=== PATIENT | male | born 1990 | race Caucasian/White ===

== ENCOUNTER → 2017-11-28 | Outpatient (CLI) | payer BC, MEDICAID ==
--- NOTE | 2017-11-29 08:45 | XR ---
EXAMINATION TYPE: XR ankle complete LT DATE OF EXAM: 11/28/2017 CLINICAL HISTORY: Left ankle pain for 2 to 3 years with no known injury TECHNIQUE: Frontal, lateral and oblique images of the left ankle are obtained. COMPARISON: None. FINDINGS: There is moderate soft tissue swelling of the left ankle joint and visualized hindfoot. Th ere is no acute fracture/dislocation evident in the left ankle. Small osteophyte/bony irregularity is seen at the talonavicular joint indicating minimal arthropathy. The ankle mortise appears within nor mal limits. The overlying soft tissue appears unremarkable. Incidental note is made of a large os tr igonum. IMPRESSION: 1. No acute fracture or dislocation in the left ankle. 2. Moderate soft tissue swelling of the left ankle and hindfoot. MR could be performed to evaluate fo r soft tissue/ligamentous/tendinous injury.
== END | disposition home or self-care (01) ==
LOC: RADXRMAIN 15:53
PROVIDERS: ATTEND Family Medicine
DX: M79.89 Other specified soft tissue disorders (principal)

== ENCOUNTER → 2019-05-17 | Outpatient (CLI) | payer MEDICAID ==
--- NOTE | 2019-05-17 14:34 | XR ---
EXAMINATION TYPE: XR foot complete LT DATE OF EXAM: 05/17/2019 COMPARISON: NONE HISTORY: Foot pain TECHNIQUE: 3 views FINDINGS: Metatarsals appear intact. There is soft tissue swelling of the forefoot. I see no fracture nor dislocation. IMPRESSION: Soft tissue swelling. No fracture.
== END | disposition home or self-care (01) ==
LOC: RADXRMAIN 13:52
PROVIDERS: ATTEND Physician Assistant
DX: M79.89 Other specified soft tissue disorders (principal)

== ENCOUNTER → 2020-10-04 | Outpatient (CLI) | payer MEDICAID ==
--- NOTE | 2020-10-04 09:15 | US ---
EXAMINATION TYPE: US abdomen complete DATE OF EXAM: 10/04/2020 COMPARISON: NONE CLINICAL HISTORY: E88.81 Metabolic syndrome. metabolic syndrome, hyperlipidemia EXAM MEASUREMENTS: Liver Length: 20.5 cm Gallbladder Wall: 0.2 cm CBD: 0.4 cm Spleen: 12.7 cm Right Kidney: 10.7 x 3.9 x 5.0 cm Left Kidney: 11.7 x 4.7 x 5.5 cm *Technical limitations due to patient's body habitus, morbidly obese, and large amount of overlying b owel content Pancreas: Obscured by bowel gas Liver: enlarged, attenuating, unable to penetrate Gallbladder: no evidence of stones Evidence for sonographic Thompson's sign: no CBD: appears wnl Spleen: wnl Right Kidney: no evidence of hydronephrosis Left Kidney: no evidence of hydronephrosis Upper IVC: Obscured by overlying bowel gas Abd Aorta: Obscured by overlying bowel gas The visualized liver is markedly heterogeneously hyperechoic. Evaluation for focal masses suboptimal due to the heterogeneity. No surrounding ascites noted. The intrahepatic portion of the IVC and abdo ga aorta are suboptimally evaluated due to overlying bowel gas and body habitus. There is no evid ence of shadowing mobile cholelithiasis. Common bile duct is not dilated. Pancreas suboptimally seen due to overlying bowel gas per technologist. The spleen is unremarkable. Kidneys are symmetric and free of hydronephrosis. No renal lesions are seen on images saved. IMPRESSION: Suboptimal study. Markedly heterogeneous hyperechoic appearance of liver presumed on the basis of diffuse fatty infiltration in patient of this age. Patient may benefit with ultrasound elastography evaluation.
== END | disposition home or self-care (01) ==
LOC: RADUSWWP 07:37
PROVIDERS: ATTEND Family Medicine
DX: E78.5 Hyperlipidemia, unspecified (principal); E88.81 Metabolic syndrome and other insulin resistance
CPT/HCPCS: 76700

== ENCOUNTER 2021-01-15 02:37 | Emergency (ER) | payer OTHER, MEDICAID ==
[2021-01-15 02:46] VITALS: BP 134/64; PULSE 89; RESP 18; TEMP 97.4
[2021-01-15] MEDS ORDERED: ACET/COD 300 MG/30 MG STARTER PACK 6 TAB BTL PO STA (03:11)
[2021-01-15] MEDS ORDERED: Acetaminophen-Codeine 300-30mg TAB PO STA (03:11)
[2021-01-15] MEDS ORDERED: IBUPROFEN 800 MG TAB PO STA (03:11)
[2021-01-15] MEDS ORDERED: IBUPROFEN 600 MG STARTER PACK 4 TAB BTL PO STA (03:11)
[2021-01-15] MEDS ORDERED: ACETAMINOPHEN TAB 325 MG TAB PO STA (03:11)
--- NOTE | 2021-01-15 03:14 | ED ---
Lower Extremity Injury HPI - General Chief Complaint: Extremity Injury, Lower Stated Complaint: [facility] extremity injury,back upper right leg Time Seen by Provider: 01/15/21 02:47 Source: patient, RN notes reviewed, old records reviewed Mode of arrival: wheelchair Limitations: no limitations - History of Present Illness Initial Comments: This is a 30-year-old male DF for evaluation patient has severe right leg pain after bending over feeling a popping sensation. Patient is able to bear weight but is worse pain when he walks wrist pain when he moves her right lower extremity. Otherwise no other complaints no fevers no significant swelling, no bruising or hematomas MD Complaint: thigh injury -: hour(s) Injury: Thigh: Right Place: home Severity: moderate Severity scale (1-10): 4 Worsens With: weight bearing, movement Context: other (none) Other Symptoms: other (none) Associated Symptoms: swelling, able to partially bear weight - Related Data Allergies Allergy/AdvReac Type Severity Reaction Status Date / Time No Known Allergies Allergy Verified 01/15/21 02:46 Review of Systems ROS Statement: Those systems with pertinent positive or pertinent negative responses have been documented in the HPI. ROS Other: All systems not noted in ROS Statement are negative. Past Medical History Past Medical History: No Reported History History of Any Multi-Drug Resistant Organisms: MRSA Date of last positivie culture/infection: 2010 MDRO Source:: neck Past Surgical History: No Surgical Hx Reported Past Psychological History: No Psychological Hx Reported Smoking Status: Never smoker Past Alcohol Use History: None Reported Past Drug Use History: None Reported General Exam Limitations: no limitations General appearance: alert, in no apparent distress, obese Head exam: Present: atraumatic, normocephalic, normal inspection Eye exam: Present: normal appearance, PERRL, EOMI. Absent: scleral icterus, conjunctival injection, periorbital swelling ENT exam: Present: normal exam, mucous membranes moist Neck exam: Present: normal inspection. Absent: tenderness, meningismus, lymphadenopathy Respiratory exam: Present: normal lung sounds bilaterally. Absent: respiratory distress, wheezes, rales, rhonchi, stridor Cardiovascular Exam: Present: regular rate, normal rhythm, normal heart sounds. Absent: systolic murmur, diastolic murmur, rubs, gallop, clicks GI/Abdominal exam: Present: soft, normal bowel sounds. Absent: distended, tenderness, guarding, rebound, rigid Extremities exam: Present: normal inspection, full ROM, normal capillary refill. Absent: tenderness, pedal edema, joint swelling, calf tenderness Back exam: Present: normal inspection Neurological exam: Present: alert, oriented X3, CN II-XII intact Psychiatric exam: Present: normal affect, normal mood Skin exam: Present: warm, dry, intact, normal color. Absent: rash Course Vital Signs 01/15/21 02:39 Temperature 97.4 F L Pulse Rate 89 Respiratory 18 Rate Blood Pressure 134/64 O2 Sat by Pulse 98 Oximetry - Reevaluation(s) Reevaluation #1: Medical record is reviewed Patient feels significantly improved well here in the ER Patient spoke with results, questions answered Medical Decision Making - Medical Decision Making 30-year-old male DF for evaluation of pulling sensation in her right leg. Patient likely has mild hamstring tear is able to ambulate without difficulty. Will be kept off work but can be discharged home Disposition Clinical Impression: Tear of left hamstring Disposition: HOME SELF-CARE Condition: Good Instructions (If sedation given, give patient instructions): Muscle Strain (ED) Is patient prescribed a controlled substance at d/c from ED?: No Referrals: None,Stated [Primary Care Provider] - 1-2 days
== END 2021-01-15 03:33 | disposition home or self-care (01) ==
LOC: EC 02:37
DX: S76.911A Strain of unspecified muscles, fascia and tendons at thigh level, right thigh, initial encounter (principal); Z86.14 Personal history of Methicillin resistant Staphylococcus aureus infection; X50.1XXA Overexertion from prolonged static or awkward postures, initial encounter; Y92.69 Other specified industrial and construction area as the place of occurrence of the external cause; Y99.0 Civilian activity done for income or pay
CPT/HCPCS: 99284